=== PATIENT | female | born 1940 | race Caucasian/White ===

== ENCOUNTER → 2018-03-20 08:34 | Outpatient (REF) | payer MEDICARE, OTHER, SELFPAY ==
[2018-03-20 20:19] LABS: Anion Gap 5.5 mmol/L (3-11); BUN 17 mg/dL (7-18); CO2 30.5 mmol/L (21.0-32.0); CREATININE 1.04 mg/dL (0.55-1.02); Calcium 9.1 mg/dL (8.5-10.1); Chloride 104 mmol/L (98-107); Estimated GFR 51.25 (mL/min/1.73m2); Glucose 140 mg/dL (70-100); Potassium 4.1 mmol/L (3.5-5.1); Sodium 140 mmol/L (136-145)
== END ==
LOC: NCHCN 08:34
PROVIDERS: PCP Nurse Practitioner Family; Visit Provider Physician Assistant Medical
DX: I10 Essential (primary) hypertension (principal)
CPT/HCPCS: 80048

== ENCOUNTER 2018-04-15 00:43 | Outpatient (CLI) | payer MEDICARE, OTHER, SELFPAY ==
--- NOTE | 2018-04-15 16:05 | DI.MAMMO_ITS ---
SYMPTOM/DIAGNOSIS: SCREENING, PREVENTIVE HEALTH Z00.00 MAMMOGRAMS: Mammograms were interpreted according to the usual protocol including computer analysis with CAD system, tomosynthesis and C view imaging. Comparison with prior examinations. Breast density B, no suspicious masses or microcalcifications are seen. There has been no significant change when compared to the prior examinations. The skin and axilla are unremarkable. There is nothing to suggest malignancy. IMPRESSION: No evidence for malignancy. Yearly mammography is recommended. Category 1, B. MQSA ASSESSMENT OF FINDINGS: Negative. Category 1. Patient will receive a letter notifying them of these results. BI-RADS category B. There are scattered areas of fibroglandular density.
== END 2018-04-15 01:03 ==
PROVIDERS: Visit Provider Physician Assistant Medical
DX: Z12.31 Encounter for screening mammogram for malignant neoplasm of breast (principal)
CPT/HCPCS: 77063; 77067

== ENCOUNTER 2018-11-27 09:47 | Outpatient (REF) | payer MEDICARE, OTHER, SELFPAY ==
[2018-11-27 20:37] LABS: Anion Gap 6.5 mmol/L (3-11); BUN 14 mg/dL (7-18); CO2 31.5 mmol/L (21.0-32.0); CREATININE 0.92 mg/dL (0.55-1.02); Calcium 9.8 mg/dL (8.5-10.1); Chloride 101 mmol/L (98-107); Estimated GFR 59.04 (mL/min/1.73m2); Glucose 187 mg/dL (70-100); Potassium 3.5 mmol/L (3.5-5.1); Sodium 139 mmol/L (136-145); TSH 1.57 uIU/mL (0.358-3.74)
== END 2018-11-27 10:07 ==
LOC: NCHCN 09:47
PROVIDERS: Visit Provider Nurse Practitioner Family
DX: E11.9 Type 2 diabetes mellitus without complications (principal); E78.5 Hyperlipidemia, unspecified; I10 Essential (primary) hypertension; R06.00 Dyspnea, unspecified; C43.60 Malignant melanoma of unspecified upper limb, including shoulder; K22.2 Esophageal obstruction
CPT/HCPCS: 80048; 84443

== ENCOUNTER 2019-12-23 13:13 | Outpatient (REF) | payer MEDICARE, OTHER, SELFPAY ==
[2019-12-23 19:21] LABS: Anion Gap 2.5 mmol/L (3-11); BUN 17 mg/dL (7-18); CO2 33.5 mmol/L (21.0-32.0); CREATININE 1.01 mg/dL (0.55-1.02); Calcium 10.1 mg/dL (8.5-10.1); Chloride 99 mmol/L (98-107); Estimated GFR 52.87 (mL/min/1.73m2); Glucose 256 mg/dL (74-106); HDL Cholesterol 53 mg/dL (40-60); LDL CHOLESTEROL 141 mg/dL (<100); Sodium 135 mmol/L (136-145)
== END 2019-12-23 13:33 ==
LOC: NCHCN 13:13
PROVIDERS: Visit Provider Nurse Practitioner Family
DX: I10 Essential (primary) hypertension (principal); E78.5 Hyperlipidemia, unspecified
CPT/HCPCS: 80048; 83721; 83718

== ENCOUNTER 2020-01-14 01:45 | Outpatient (CLI) | payer MEDICARE, OTHER, SELFPAY ==
--- NOTE | 2020-01-14 | DI.MAMMO_ITS ---
EXAM: MAMMO SCREENING CLINICAL HISTORY: SCREENING, Z12.39 TECHNIQUE: Mammograms were interpreted according to the usual protocol including computer analysis w [employer] CAD system, tomosynthesis and C-view imaging. COMPARISON: FINDINGS: The breasts are of moderate density somewhat asymmetric distribution of fibroglandular tissue and inc reased radiodensity of the retroareolar portion of the right breast compared to the left. These find ings are unchanged comparison with prior studies including March 2018. No new mass or clumped mi crocalcification is seen in either breast. IMPRESSION: No specific evidence of malignancy at this time. Routine screening examinations are suggested yearly intervals in this age group according to the ACS ACR guidelines. BI-RADS Category 1 - Negative Breast Density - Category B - Scattered areas of fibroglandular density
== END 2020-01-14 02:05 ==
PROVIDERS: PCP Nurse Practitioner Family; Visit Provider Nurse Practitioner Family
DX: Z12.31 Encounter for screening mammogram for malignant neoplasm of breast (principal)
CPT/HCPCS: 77063; 77067

== ENCOUNTER 2020-03-01 20:32 | Outpatient (REF) | payer MEDICARE, OTHER, SELFPAY ==
[2020-03-01 19:24] LABS: HCT 42.7 % (36.0-46.0); HGB 14.2 g/dL (11.2-15.7); MCH 31.8 pg (27.0-33.0); MCHC 33.3 % (32.0-36.0); MCV 95.7 fL (80-95); MPV 11.5 fL (8.0-11.0); Platelet Count 240 10^3/uL (130-400); RBC 4.46 10^6/uL (3.93-5.22); RDW 12.3 % (11.7-14.6); RDW-SD 43.8 fL; WBC 9.56 10^3/uL (4.4-10.8)
[2020-03-01 20:06] LABS: Vitamin D 25 Total 42.4 ng/ml (30-100)
[2020-03-01 20:09] LABS: ALT 32 U/L (14-59); AST 18 U/L (15-37); Albumin 3.6 g/dL (3.4-5.0); Alkaline Phosphatase 95 U/L (46-116); Anion Gap 10.5 mmol/L (3-11); BUN 25 mg/dL (7-18); Bilirubin, Total 0.3 mg/dL (0.2-1.0); CO2 27.5 mmol/L (21.0-32.0); CREATININE 1.09 mg/dL (0.55-1.02); Chloride 100 mmol/L (98-107); Glucose 203 mg/dL (74-106); Potassium 3.2 mmol/L (3.5-5.1); Sodium 138 mmol/L (136-145); TSH 1.05 uIU/mL (0.36-3.74); Total Protein 7.2 g/dL (6.4-8.2); Vitamin B12 323 pg/mL (193-986)
== END 2020-03-01 20:52 ==
LOC: NCHCN 20:32
PROVIDERS: PCP Nurse Practitioner Family; Visit Provider Nurse Practitioner Family
DX: E11.9 Type 2 diabetes mellitus without complications (principal); I10 Essential (primary) hypertension; E66.8 Other obesity; R53.83 Other fatigue; N18.3 Chronic kidney disease, stage 3 (moderate)
CPT/HCPCS: 80053; 82306; 85027; 82607; 84443

== ENCOUNTER 2020-03-22 13:29 | Outpatient (REF) | payer MEDICARE, OTHER, SELFPAY ==
[2020-03-22 20:17] LABS: Anion Gap 9.6 mmol/L (3-11); BUN 23 mg/dL (7-18); CO2 28.4 mmol/L (21.0-32.0); CREATININE 1.04 mg/dL (0.55-1.02); Calcium 9.8 mg/dL (8.5-10.1); Chloride 101 mmol/L (98-107); Estimated GFR 50.99 (mL/min/1.73m2); Glucose 233 mg/dL (74-106); Potassium 3.8 mmol/L (3.5-5.1); Sodium 139 mmol/L (136-145)
== END 2020-03-22 13:49 ==
LOC: NCHCN 13:29
PROVIDERS: PCP Nurse Practitioner Family; Visit Provider Nurse Practitioner Family
DX: I10 Essential (primary) hypertension (principal)
CPT/HCPCS: 80048

== ENCOUNTER 2020-09-14 22:20 | Outpatient (REF) | payer MEDICARE, OTHER, SELFPAY ==
[2020-09-14 15:42] LABS: Anion Gap 10.9 mmol/L (3-11); BUN 23 mg/dL (7-18); CO2 28.1 mmol/L (21.0-32.0); CREATININE 0.9 mg/dL (0.55-1.02); Calcium 9.8 mg/dL (8.5-10.1); Chloride 102 mmol/L (98-107); Glucose 154 mg/dL (74-106); HDL Cholesterol 57 mg/dL (40-60); LDL CHOLESTEROL 140 mg/dL (<100); Potassium 3.5 mmol/L (3.5-5.1); Sodium 141 mmol/L (136-145)
== END 2020-09-14 22:21 | disposition home or self-care (01) ==
LOC: NCHCN 22:20
PROVIDERS: PCP Nurse Practitioner Family; Visit Provider Nurse Practitioner Family
DX: E11.9 Type 2 diabetes mellitus without complications (principal); E78.5 Hyperlipidemia, unspecified; R53.83 Other fatigue; N18.30 Chronic kidney disease, stage 3 unspecified; I10 Essential (primary) hypertension; R20.2 Paresthesia of skin
CPT/HCPCS: 80048; 83721; 83718

== ENCOUNTER 2020-11-01 11:34 | Outpatient (REF) | payer MEDICARE, OTHER, SELFPAY ==
[2020-11-01 16:49] LABS: ALT 35 U/L (14-59); AST 20 U/L (15-37); HDL Cholesterol 60 mg/dL (40-60); LDL CHOLESTEROL 139 mg/dL (<100)
[2020-11-01 17:20] LABS: Creatine Kinase 33 U/L (26-192)
== END 2020-11-01 11:35 | disposition home or self-care (01) ==
LOC: NCHCN 11:34
PROVIDERS: PCP Nurse Practitioner Family; Visit Provider Nurse Practitioner Family
DX: I25.10 Atherosclerotic heart disease of native coronary artery without angina pectoris (principal); E11.9 Type 2 diabetes mellitus without complications
CPT/HCPCS: 82550; 83721; 83036; 83718; 84450; 84460

== ENCOUNTER 2021-01-17 01:53 | Outpatient (CLI) | payer MEDICARE, OTHER, SELFPAY ==
--- NOTE | 2021-01-17 | DI.MAMMO_ITS ---
Exam(s) MAMMO SCREENING EXAM: MAMMO SCREENING CLINICAL HISTORY: SCREENING MAMMOGRAM Z12.31. TECHNIQUE: Bilateral full field digital CC and MLO mammographic images were obtained with 3D tomosyn thesis and utilizing computer aided detection (CAD). COMPARISON: Prior mammograms dating back to 2010, the most recent being December 2019. FINDINGS: There are no new spiculated masses nor malignant appearing microcalcification groups. Microcalcification group in the mid left breast is slightly increased but remains benign appearance. Stable calcifications in the opposite-right breast are again noted. There is no significant architectural distortion nor skin thickening-retraction. IMPRESSION: Benign findings. No radiographic evidence of malignancy. BI-RADS Category 2 - Benign Findings Breast Density - Category B - Scattered areas of fibroglandular density Breast density Category C or D implies that the patient has dense breast tissue. Dense breast tissue can make it harder to find cancer on a mammogram. Dense breast tissue is also associated with an incr eased risk of breast cancer. This information about the result of the mammogram report was provided to the patient to raise their awareness. Use this report when you speak with the patient about their risks for breast cancer, which includes their family history. At that time, you may recommend additional screening tests (Ultrasoun d or MRI) as these tests may add significant information. A negative radiographic report should not delay biopsy if a dominant or clinically suspicious mass is present. Up to ten percent of cancers are not identified on mammography. A negative report may reinforce clinical impression. Adenosis and dense breasts may obscure an underlying neoplasm. False positive reports average 6 to 10%. Patient will receive a letter notifying them of these results.
== END 2021-01-17 02:13 ==
PROVIDERS: PCP Nurse Practitioner Family; Visit Provider Nurse Practitioner Family
DX: Z12.31 Encounter for screening mammogram for malignant neoplasm of breast (principal); R92.8 Other abnormal and inconclusive findings on diagnostic imaging of breast
CPT/HCPCS: 77063; 77067

== ENCOUNTER 2021-02-03 02:12 | Outpatient (CLI) | payer MEDICARE, OTHER, SELFPAY ==
--- NOTE | 2021-02-03 | DI.US_ITS ---
Exam(s) US CAROTID EXAM: US CAROTID CLINICAL HISTORY: DISEQUILIBRIUM, R42,ATHERSCLEROTIC CARDIOVASCULAR DISEASE,I25.10,DIZZINESS,. TECHNIQUE: Ultrasound carotids performed using grayscale, color-flow, and spectral Doppler imaging. COMPARISON: US CAROTID ULTRASOUND from 12/10/2015 FINDINGS: RIGHT CAROTID ARTERY: Plaque: There is mild plaque at the carotid bifurcation and proximal right internal carotid artery. Velocity elevation: Mildly elevated systolic velocity noted in the proximal right ICA. Maximum systo lic velocity is 137 cm/sec; moderate stenosis (50-69 percent) LEFT CAROTID ARTERY: Plaque: Mild plaque also evident at the carotid bulb and proximal left ICA Velocity elevation: Mildly elevated systolic velocity in the mid ICA with maximum systolic velocity o f 137 cm/sec; consistent with moderate stenosis (50-69 percent) VERTEBRAL ARTERIES: Antegrade flow was demonstrated in both vertebral arteries. Measurements: R Bulb: 92.5cm/s PS / 13.5cm/s ED R CCA: 75.8cm/s PS / 15.4cm/s ED R ECA: 114.4cm/s PS / 7.7cm/s ED R ICA Prox: 137cm/s PS /31.5cm/s ED R ICA Mid: 90.7cm/s PS / 15.7cm/s ED R ICA Distal: 99cm/s PS /22.2cm/s ED R Vert: 52.7cm/s PS / 7.7cm/s ED R SVR: 1.81 R DVR: 2.05 L Bulb: 88.7cm/s PS /15.4cm/s ED L CCA: 96.4cm/s PS / 24.4cm/s ED L ECA: 153.5cm/s PS /13.7cm/s ED L ICA Prox:113.6cm/s PS / 29.4cm/s ED L ICA Mid: 136.7cm/sPS / 33.7cm/s ED L ICA Distal: 114.6cm/s PS / 41cm/s ED L Vert: 55cm/s PS / 13.9cm/s ED L SVR: 1.42 L DVR: 1.38 IMPRESSION: There is mild plaque evident in the carotid bulbs and proximal internal carotid arteries bilaterally mildly elevated velocities in the internal carotid arteries in the neck consistent with approximately 50-69 percent stenosis bilaterally. Antegrade flow is demonstrated in both vertebral arteries. Criteria for Carotid Stenosis: Normal: ICA PSV <125 cm/s no plaque or intimal thickening is visible. <50% stenosis: ICA PSV <125 cm/s and plaque or intimal thickening is visible. 50-69% stenosis: ICA PSV is 125-250 cm/s and plaque is visible. >70% stenosis to near occlusion: ICA PSV >250 cm/s with visible plaque and luminal narrowing. DATA REPOSITORY:
== END 2021-02-03 02:32 ==
PROVIDERS: PCP Nurse Practitioner Family; Visit Provider Nurse Practitioner Family
DX: I65.23 Occlusion and stenosis of bilateral carotid arteries (principal); I77.89 Other specified disorders of arteries and arterioles; I25.10 Atherosclerotic heart disease of native coronary artery without angina pectoris
CPT/HCPCS: 93880

== ENCOUNTER 2021-02-08 01:46 | Outpatient (CLI) | payer MEDICARE, OTHER, SELFPAY ==
--- NOTE | 2021-02-08 | DI.US_ITS ---
Exam(s) US BREAST LT COMPLETE EXAM: US BREAST LT COMPLETE CLINICAL HISTORY: F/U MAMMO, DENSE BREAST TISSUE,INCREASED RISK OF BREAST CA,SLIGHT INCREASE TECHNIQUE: Ultrasound left breast performed using standard protocol. COMPARISON: MG MAMMO SCREENING from 01/17/2021 FINDINGS: No solid or cystic masses, hypoechoic foci, areas of abnormal shadowing, or areas of skin thickening. IMPRESSION: No sonographically suspicious finding. BI-RADS Category 2 - Benign Findings Yearly screening mammography is recommended. DATA REPOSITORY:
== END 2021-02-08 02:06 ==
PROVIDERS: PCP Nurse Practitioner Family; Visit Provider Nurse Practitioner Family
DX: R92.2 Inconclusive mammogram (principal); R92.8 Other abnormal and inconclusive findings on diagnostic imaging of breast; R92.0 Mammographic microcalcification found on diagnostic imaging of breast
CPT/HCPCS: 76642

== ENCOUNTER 2021-12-27 19:32 | Outpatient (REF) | payer MEDICARE, OTHER, SELFPAY ==
[2021-12-27 15:04] LABS: HCT 41.2 % (36.0-46.0); HGB 13.4 g/dL (11.2-15.7); MCH 31.5 pg (27.0-33.0); MCHC 32.5 % (32.0-36.0); MCV 97 fL (80-95); MPV 10.7 fL (8.0-11.0); Platelet Count 208 10^3/uL (130-400); RBC 4.26 10^6/uL (3.93-5.22); RDW 12.6 % (11.7-14.6); RDW-SD 44.4 fL; WBC 6.27 10^3/uL (4.4-10.8)
[2021-12-27 15:45] LABS: Hemoglobin A1C 6.9 % (<5.7)
[2021-12-27 16:03] LABS: Calculated LDL 158 mg/dL (<100); Cholesterol 250 mg/dL (<200); HDL Cholesterol 64 mg/dL (40-60); Magnesium 1.6 mg/dL (1.8-2.4); TSH (W/Ref FT4) 1.27 uIU/mL (0.36-3.74); Triglyceride 142 mg/dL (<150)
[2021-12-28 12:42] LABS: BUN 20 mg/dL (7-18); CREATININE 1.1 mg/dL (0.55-1.02); Estimated GFR 47.67 (mL/min/1.73m2)
== END 2021-12-27 19:33 | disposition home or self-care (01) ==
LOC: NCHCN 19:32
PROVIDERS: PCP Nurse Practitioner Family; Visit Provider Nurse Practitioner Family
DX: I10 Essential (primary) hypertension (principal); E78.5 Hyperlipidemia, unspecified; E11.9 Type 2 diabetes mellitus without complications
CPT/HCPCS: 80061; 84520; 85027; 82565; 83036; 83735; 84443

== ENCOUNTER 2022-01-12 03:40 | Outpatient (CLI) | payer MEDICARE, OTHER, SELFPAY ==
--- NOTE | 2022-04-27 13:56 | W.CARDEVENT ---
Date of service: 04/27/22 Time of Service: 13:57 Cardiac Event Recorder Referring Provider:: Sosa Ramos Indications:: Palpitations Cardiac Event Note: This is a 30-day event monitor ordered for palpitations Predominant rhythm was sinus with an average heart rate of 68. Minimum was 46, maximum 88 There were rare ventricular ectopic beats. There was one 8 beat run of nonsustained ventricular tachycardia There were occasional atrial premature beats. Several 3-5 beat atrial runs occurred There was no atrial fibrillation There was no high-grade AV block, no pauses greater than 3 seconds patient symptoms were reported which corresponded to sinus rhythm and sinus tachycardia
== END 2022-01-12 03:41 | disposition home or self-care (01) ==
LOC: RT 03:44
PROVIDERS: PCP Nurse Practitioner Family; Visit Provider Nurse Practitioner Family
DX: R00.1 Bradycardia, unspecified (principal)
CPT/HCPCS: 93270

== ENCOUNTER → 2022-02-01 01:16 | Outpatient (CLI) | payer MEDICARE, OTHER, SELFPAY ==
--- NOTE | 2022-02-01 13:15 | DI.MAMMO_ITS ---
Exam(s) MAMMO SCREENING EXAM: MAMMO SCREENING CLINICAL HISTORY: SCREENING FOR BREAST CANCER, Z12.39. TECHNIQUE: Bilateral full field digital CC and MLO mammographic images were obtained with 3D tomosyn thesis and utilizing computer aided detection (CAD). COMPARISON: Prior mammograms were reviewed, the most recent being December 2020.. Left breast ultrasound January 2021 also reviewed. FINDINGS: There has been no significant change in the appearance and distribution of the fibroglandular tissue. There are no new spiculated masses nor malignant appearing microcalcification groups. There is no significant architectural distortion nor skin thickening-retraction. IMPRESSION: No radiographic evidence of malignancy. BI-RADS Category 1 - Negative Breast Density - Category B - Scattered areas of fibroglandular density Breast density Category C or D implies that the patient has dense breast tissue. Dense breast tissue can make it harder to find cancer on a mammogram. Dense breast tissue is also associated with an incr eased risk of breast cancer. This information about the result of the mammogram report was provided to the patient to raise their awareness. Use this report when you speak with the patient about their risks for breast cancer, which includes their family history. At that time, you may recommend additional screening tests (Ultrasoun d or MRI) as these tests may add significant information. A negative radiographic report should not delay biopsy if a dominant or clinically suspicious mass is present. Up to ten percent of cancers are not identified on mammography. A negative report may reinforce clinical impression. Adenosis and dense breasts may obscure an underlying neoplasm. False positive reports average 6 to 10%. Patient will receive a letter notifying them of these results.
== END ==
PROVIDERS: PCP Nurse Practitioner Family; Visit Provider Nurse Practitioner Family
DX: Z12.31 Encounter for screening mammogram for malignant neoplasm of breast (principal); R92.8 Other abnormal and inconclusive findings on diagnostic imaging of breast
CPT/HCPCS: 77063; 77067

== ENCOUNTER 2022-02-14 11:23 | Outpatient (REF) | payer MEDICARE, OTHER, SELFPAY ==
[2022-02-14 17:00] LABS: Anion Gap 10.4 mmol/L (3-11); BUN 20 mg/dL (7-18); CO2 27.6 mmol/L (21.0-32.0); CREATININE 1.1 mg/dL (0.55-1.02); Calcium 9.9 mg/dL (8.5-10.1); Chloride 101 mmol/L (98-107); Estimated GFR 47.55 (mL/min/1.73m2); Ferritin 227 ng/mL (8-252); Glucose 221 mg/dL (74-106); Potassium 3.6 mmol/L (3.5-5.1); Sodium 139 mmol/L (136-145); Vitamin B12 203 pg/mL (193-986)
[2022-02-14 18:42] LABS: Vitamin D 25 Total 36.9 ng/mL (30-100)
== END 2022-02-14 11:24 | disposition home or self-care (01) ==
LOC: NCHCN 11:23
PROVIDERS: PCP Nurse Practitioner Family; Visit Provider Nurse Practitioner Family
DX: R00.2 Palpitations (principal); R53.83 Other fatigue; E78.5 Hyperlipidemia, unspecified; I25.10 Atherosclerotic heart disease of native coronary artery without angina pectoris; G89.29 Other chronic pain; M79.673 Pain in unspecified foot
CPT/HCPCS: 80048; 82306; 82607; 82728

== ENCOUNTER 2022-04-27 13:58 | Outpatient (CLI) | payer MEDICARE, OTHER, SELFPAY | END 2022-04-27 13:59 | LOC: CARDOPNVT 05-08 09:53 | PROVIDERS: PCP Nurse Practitioner Family; Visit Provider Internal Medicine Cardiovascular Disease | DX: I49.49 Other premature depolarization (principal); I49.1 Atrial premature depolarization | CPT/HCPCS: 93272 ==

== ENCOUNTER 2023-02-08 15:04 | Outpatient (REF) | payer MEDICARE, OTHER, SELFPAY ==
[2023-02-08 16:29] LABS: ALT 33 U/L (14-59); AST 27 U/L (15-37); Albumin 3.5 g/dL (3.4-5.0); Alkaline Phosphatase 122 U/L (46-116); Anion Gap 8.3 mmol/L (3-11); BUN 23 mg/dL (7-18); Bilirubin, Total 0.5 mg/dL (0.2-1.0); CO2 31.7 mmol/L (21.0-32.0); CREATININE 1.2 mg/dL (0.55-1.02); Calcium 9.9 mg/dL (8.5-10.1); Chloride 101 mmol/L (98-107); Estimated GFR 45.19 (mL/min/1.73m2); Glucose 229 mg/dL (74-106); HDL Cholesterol 51 mg/dL (40-60); LDL CHOLESTEROL 146 mg/dL (<100); Potassium 3.3 mmol/L (3.5-5.1); Sodium 141 mmol/L (136-145); Total Protein 7.3 g/dL (6.4-8.2)
== END 2023-02-08 15:05 | disposition home or self-care (01) ==
LOC: NCHCN 15:04
PROVIDERS: PCP Nurse Practitioner Family; Visit Provider Nurse Practitioner Family
DX: E78.5 Hyperlipidemia, unspecified (principal); I10 Essential (primary) hypertension; E11.9 Type 2 diabetes mellitus without complications
CPT/HCPCS: 80053; 83721; 83718

== ENCOUNTER 2023-03-29 09:56 | Outpatient (REF) | payer MEDICARE, OTHER, SELFPAY ==
[2023-03-29 15:53] LABS: Anion Gap 7.4 mmol/L (3-11); BUN 19 mg/dL (7-18); CO2 27.6 mmol/L (21.0-32.0); CREATININE 1.1 mg/dL (0.55-1.02); Calcium 9.2 mg/dL (8.5-10.1); Chloride 106 mmol/L (98-107); Estimated GFR 49.86 (mL/min/1.73m2); Glucose 232 mg/dL (74-106); Potassium 3.9 mmol/L (3.5-5.1); Sodium 141 mmol/L (136-145)
== END 2023-03-29 09:57 | disposition home or self-care (01) ==
LOC: NCHCN 09:56
PROVIDERS: PCP Nurse Practitioner Family; Visit Provider Nurse Practitioner Family
DX: I10 Essential (primary) hypertension (principal); N18.30 Chronic kidney disease, stage 3 unspecified
CPT/HCPCS: 80048

== ENCOUNTER → 2023-04-02 01:03 | Outpatient (CLI) | payer MEDICARE, OTHER, SELFPAY ==
--- NOTE | 2023-04-02 | DI.MAMMO_ITS ---
Exam(s) MAMMO SCREENING EXAM: MAMMO SCREENING CLINICAL HISTORY: SCREENING, Z12.31. TECHNIQUE: Bilateral full field digital CC and MLO mammographic images were obtained with 3D tomosyn thesis and utilizing computer aided detection (CAD). COMPARISON: Prior mammograms were reviewed. FINDINGS: There has been no significant change in the appearance and distribution of the fibroglandular tissue. There are no new spiculated masses nor malignant appearing microcalcification groups. There is no significant architectural distortion nor skin thickening-retraction. IMPRESSION: No radiographic evidence of malignancy. BI-RADS Category 1 - Negative Breast Density - Category B - Scattered areas of fibroglandular density Breast density Category C or D implies that the patient has dense breast tissue. Dense breast tissue can make it harder to find cancer on a mammogram. Dense breast tissue is also associated with an incr eased risk of breast cancer. This information about the result of the mammogram report was provided to the patient to raise their awareness. Use this report when you speak with the patient about their risks for breast cancer, which includes their family history. At that time, you may recommend additional screening tests (Ultrasoun d or MRI) as these tests may add significant information. A negative radiographic report should not delay biopsy if a dominant or clinically suspicious mass is present. Up to ten percent of cancers are not identified on mammography. A negative report may reinforce clinical impression. Adenosis and dense breasts may obscure an underlying neoplasm. False positive reports average 6 to 10%. Patient will receive a letter notifying them of these results.
== END ==
PROVIDERS: PCP Nurse Practitioner Family; Visit Provider Nurse Practitioner Family
DX: Z12.31 Encounter for screening mammogram for malignant neoplasm of breast (principal)
CPT/HCPCS: 77063; 77067

== ENCOUNTER 2023-11-08 16:47 | Outpatient (REF) | payer MEDICARE, OTHER, SELFPAY ==
[2023-11-08 18:13] LABS: BUN 22 mg/dL (7-18); Calcium 9.7 mg/dL (8.5-10.1); Chloride 104 mmol/L (98-107); Glucose 155 mg/dL (74-106); Potassium 3.8 mmol/L (3.5-5.1); Sodium 141 mmol/L (136-145)
[2023-11-08 18:36] LABS: Hemoglobin A1C 7.6 % (<5.7)
== END 2023-11-08 16:48 | disposition home or self-care (01) ==
LOC: NCHCN 16:47
PROVIDERS: PCP Nurse Practitioner Family; Visit Provider Nurse Practitioner Family
DX: E11.9 Type 2 diabetes mellitus without complications (principal)
CPT/HCPCS: 80048; 83036

== ENCOUNTER 2023-11-16 06:27 | Day surgery (SDC) | payer MEDICARE, OTHER, SELFPAY ==
--- NOTE | 2023-11-16 06:21 | W.ANESPRE ---
General Info Date of Service Date Performed: 11/16/23 Height: 5 ft 3.25 in Weight: 70.76 kg Body Mass Index (BMI): 27.3 Surgical Procedure: Operation Date: 11/16/23 07:40 Proposed Procedure Side Surgeon p Cataract Extraction with IOL Implant Left Patel Baldwin MD Meds Allergies and Home Medications Allergies Allergy/AdvReac Type Severity Reaction Status Date / Time Penicillins Allergy Skin Rash Unverified 11/16/23 06:55 Sulfa (Sulfonamide Allergy Skin Rash Unverified 11/16/23 06:55 Antibiotics) pravastatin AdvReac Severe Myalgia Verified 11/16/23 07:04 simvastatin [From Zocor] AdvReac dizziness, Unverified 11/16/23 07:04 Myalgia Home Medication Medication Instructions Recorded Aspirin Low-Strength 81 mg 81 mg PO DAILY 03/25/15 chewable tablet (aspirin) Prilosec OTC 20 mg tablet,delayed 20 mg PO DAILY 03/25/15 release (omeprazole magnesium) ProAir HFA 90 mcg/actuation 2 puff inhalation Q6H PRN 03/25/15 aerosol inhaler (albuterol sulfate) hydrochlorothiazide 25 mg tablet 25 mg PO DAILY 03/25/15 brimonidine 0.2 % eye drops 1 drp ophthalmic (eye) BID 11/13/23 clotrimazole 1 % topical cream 1 applic topical DIRECTED 11/13/23 empagliflozin 25 mg tablet 25 mg PO DAILY 11/13/23 (Jardiance) magnesium chloride 64 mg 64 mg PO DAILY 11/13/23 (magnesium chloride) tablet metoprolol succinate 25 mg 25 mg PO DAILY 11/13/23 tablet,extended release 24 hr metoprolol succinate 50 mg 50 mg PO DAILY 11/13/23 tablet,extended release 24 hr potassium chloride 10 mEq 10 meq PO DAILY 11/13/23 capsule,extended release semaglutide 3 mg tablet (Rybelsus) 3 mg PO DAILY 11/13/23 therapeutic multivitamin 1 tab PO DAILY 11/13/23 Current Visit Medications: Current Medications Generic Name Dose Route Start Last Admin Trade Name Freq PRN Reason Stop Dose Admin Acetaminophen 1,000 mg 11/16/23 06:00 Acetaminophen 500 Mg Tab PO 12/16/23 05:59 Q4H PRN PRN Balanced Salt Solution 500 ml 11/16/23 06:00 Balanced Salt Soln.-Plus 500 Ml Bag OP 12/16/23 05:59 DIRECTED HARJIT Miscellaneous Medication 0 ml 11/16/23 06:00 Prednisolone 1%, Moxifloxacin 0.5%, Bromfenac 0.09% 5ml Btl OS 12/16/23 05:59 DIRECTED HARJIT Miscellaneous Medication 0 ml 11/16/23 06:00 Tropicam./Phenyleph. (1/2.5%) 10 Ml Btl OS 12/16/23 05:59 DIRECTED HARJIT Tetracaine HCl 0 ml 11/16/23 06:00 Tetracaine 0.5% 4 Ml Btl OS 12/16/23 05:59 DIRECTED HARJIT PFSH Active Problems Active Problems: Problem Status Onset Code Cortical age-related cataract, left eye H25.012 Nuclear age-related cataract, left eye H25.12 Medical History Medical History Impacted cerumen Pain in right wrist Atherosclerosis of coronary artery without angina pectoris Bimalleolar fracture Snoring Dyspnea Palpitations She had 3 brief episodes while she was vacationing in [place] over the wintertime. She is asymptomatic today. She has had an extensive workup 2021 for the similar symptoms. if the symptoms worsen or increase in frequency will refer back to cardiology-Per H&P Edema Paresthesia Fatigue Dizziness and giddiness Syncope and collapse Pain in toe Epidermoid cyst Seborrheic dermatitis Chronic kidney disease, stage 3 IBS (irritable bowel syndrome) Hx of constipation Gastroenteritis Diaphragmatic hernia Disorder of nasal sinus Mild intermittent asthma Deviated nasal septum Arterial embolus and thrombosis Carotid artery stenosis Stable followed by [facility]. carotid duplex 16-49% stenosis continue ASA and statin no vascular intervention warranted at this time return to clinic 1 year.-Per H&P Bilateral tinnitus Cataract Chronic pain HLD (hyperlipidemia) Type II diabetes mellitus Malignant melanoma of upper limb Onychomycosis Herpes zoster Asthma Hypertension GERD (gastroesophageal reflux disease) History of basal cell carcinoma Surgical History Surgical History Skin Cancer Removal EXE HONEY CYST ON BACK/IV (04/23/15) [facility] EGD - IV Sedation Colonoscopy - MAC Tobacco Smoking/Tobacco Use Status: Never Alcohol Alcohol Intake: never Substance Use Substance use: Never Substance use type: does not use Vital Signs and Lab Results Vital Signs Most Recent Vital Signs in EMR: Temp Pulse Resp BP Pulse Ox 36.1 C L 71 16 136/92 H 98 11/16/23 06:42 11/16/23 06:42 11/16/23 06:42 11/16/23 06:42 11/16/23 06:42 Lab Results Blood Type / Crossmatch: No Data to Display Complete Blood Count: No Data to Display Complete Metabolic Panel: Sodium 141 mmol/L (136-145) 11/08/23 11:50 Potassium 3.8 mmol/L (3.5-5.1) 11/08/23 11:50 Chloride 104 mmol/L (98-107) 11/08/23 11:50 Carbon Dioxide 27.0 mmol/L (21.0-32.0) 11/08/23 11:50 BUN 22 mg/dL (7-18) H 11/08/23 11:50 Creatinine 1.0 mg/dL (0.55-1.02) 11/08/23 11:50 Est GFR (CKD-EPI 2020) 55.90 (mL/min/1.73m2) 11/08/23 11:50 Calcium 9.7 mg/dL (8.5-10.1) 11/08/23 11:50 Glucose 155 mg/dL (74-106) H 11/08/23 11:50 Hemoglobin A1c 7.6 % (<5.7) H 11/08/23 11:50 Liver Function Panel: No Data to Display Coagulation Panel: No Data to Display Cardiac Panel: No Data to Display Arterial Blood Gas: No Data to Display Venous Blood Gas: No Data to Display Pancreas Panel: No Data to Display Thyroid Panel: No Data to Display Infectious Disease: No Data to Display Blood Cultures: No Data to Display Toxicology Panel: No Data to Display Imaging and Studies Imaging and Studies Study information below may be from another EMR and interpreted by another provider. Please see original notes in EMR for more complete details. Carotid Artery Summary:: 02/09: mild plaque carotid bulbs and ICA bilaterally. 50-69% stenosis bilaterally. Anesthesia Assessment and Plan Anesthesia History Personal History: No History of Anesthesia Complications Family History: No Family History of Anesthesia Complications Exercise Tolerance Exercise Tolerance: Metabolic Equivalents>4 Cardiac & Pulmonary Exam Cardiac Exam: Normal S1/S2 Heart Sounds Pulmonary Exam: Clear Bilateral Breath Sounds Implantable Cardiac Device Does patient have a Pacemaker or an ICD?: No Airway Exam Known Difficult Airway: No Mallampati Class: 3 Mouth Opening: Normal (> 3cm) Thyromental Distance: Greater than 3 cm Neck Range of Motion: Full ROM Neck Circumference: Normal Teeth Condition: Normal Dentition ASA Classification ASA Score: ASA 3 Emergency Case?: No NPO Status NPO Status: NPO Clears >2 hours, Solids >8 hours Anesthesia Plan Resuscitation Status: Full Code Anesthesia Technique: MAC Anesthesia Airway Planned: Natural Airway Monitors Used: Standard Monitors Preoperative Comments:: 83 yo female for cataract removal. Sig PMHx: CAD, asthma (rare inhaler use), GERD (well controlled), CKDIII, DMII, never smoker
[2023-11-16 06:42] VITALS: BP 136/92; PULSE 71; RESP 16; TEMP 36.1; O2SAT 98
[2023-11-16 07:00] VITALS: BMI 27.3
[2023-11-16] MEDS: Balanced Salt Soln.-PLUS 500 ML BAG OP (07:38)
[2023-11-16] MEDS: Duovisc Viscoelastic System EACH 1 EACH (07:38)
[2023-11-16] MEDS: Povidone-Iodine Ophth 30 ML BTL (07:38)
[2023-11-16] MEDS: Tetracaine 0.5% 4 ML BTL OS (07:38)
[2023-11-16] MEDS: Lidocaine 1% Pres-Free 5 ML VIAL (07:39)
--- NOTE | 2023-11-16 07:57 | W.PM.DSUDISC ---
Date of service: 11/16/23 Time of Service: 07:57 Discharge Plan Disposition Patient Disposition: Home Discharge Details Attending Provider: Patel Baldwin Primary Care Provider: Sosa Ramos Home Meds and New Rx's Prescriptions: No Action aspirin [Aspirin Low-Strength] 81 MG tablet,chewable 81 mg PO DAILY hydrochlorothiazide 25 MG tablet 25 mg PO DAILY albuterol sulfate [ProAir HFA] 8.5 GM HFA aerosol inhaler 2 puff Inhalation Q6H PRN omeprazole magnesium [Prilosec OTC] 20 MG tablet,delayed release (DR/EC) 20 mg PO DAILY Jardiance 25 mg tablet 25 mg PO DAILY potassium chloride 10 mEq capsule, extended release 10 meq PO DAILY Rybelsus 3 mg tablet 3 mg PO DAILY metoprolol succinate 50 mg tablet extended release 24 hr 50 mg PO DAILY brimonidine 0.2 % drops 1 drp ophthalmic (eye) BID Patient Comments: INSTILL 1 DROP IN BOTH EYES TWICE DAILY NEEDED magnesium chloride 64 mg magnesium tablet 64 mg PO DAILY Patient Comments: Take 1 tablet by mouth once a day clotrimazole 1 % cream 1 applic TOPICAL DIRECTED Patient Comments: APPLY EXTERNALLY TO THE AFFECTED AREA TWICE DAILY therapeutic multivitamin Tablet 1 tab PO DAILY metoprolol succinate 25 mg tablet extended release 24 hr 25 mg PO DAILY Discharge Instructions Stand Alone Forms: [facility] Post-Op Demi Morales ([facility]) Discharge Orders Discharge Orders: Discharge Order (Routine); Ordered 11/16/23 Ordered By: Patel Baldwin DS: Diagnosis Discharge Diagnosis (1) Cortical age-related cataract, left eye: Status: Resolved (2) Nuclear age-related cataract, left eye: Status: Resolved
--- NOTE | 2023-11-16 07:57 | W.PM.OP ---
Date of service: 11/16/23 Time of Service: 07:58 Operative Note Operative Note DATE OF PROCEDURE: 11/16/23 PRE-OP DIAGNOSIS: Nuclear/cortical cataract, left eye POST-OP DIAGNOSIS: same PROCEDURE: Cataract extraction using phacoemulsification with intraocular lens implant, left eye SURGEON: Patel Baldwin ANESTHESIA TYPE: Local By Surgeon and MAC Refer to Anesthesia Record PATHOLOGY: none sent COMPLICATIONS: None Patient was transported to: same day Patient's condition: stable Implants: Praveen Clareon [id number] Indications: Progressive decreased vision due to cataract, left eye Procedure Description: CATARACT SURGERY OPERATIVE REPORT PREOPERATIVE DIAGNOSIS: Nuclear/cortical cataract, left eye POSTOPERATIVE DIAGNOSIS: Same OPERATION: Cataract extraction using phacoemulsification with posterior chamber intraocular lens implant, left eye. IOL: IOL Switchboard Installer/Model: Praveen Clareon [id number] IOL Power: + 23.0 diopters IOL Serial Number: [id number] Optic Diameter: 6.0mm Haptic/Overall Diameter: 13.0mm PHACO INFO: [email or web address] Vision System with OZil and Active Fluidics Cumulative Dispersed Energy (CDE): 6.72 seconds SURGEON: Patel Baldwin MD, MAURICIO ANESTHESIA: Monitored Anesthesia Care (MAC), with local sub-tenon's anesthetic infiltration COMPLICATIONS: None SPECIMENS: None INDICATIONS FOR PROCEDURE: The patient is an 83-year-old lady with history of diminished visual acuity in her left eye secondary to the development of nuclear/cortical cataract. She is significantly symptomatic that she desires cataract surgery and attempt to improve and maximize her vision. See office notes for detailed information. PROCEDURE: The correct surgical eye was identified and marked as the left eye and the pupil was dilated in the preoperative area using mydriatics and cycloplegics. The dilated pupil size was 5.5 mm. The patient elected to proceed without oral sedation. The patient was brought to the operating room where cardiopulmonary monitoring was instituted and surgical time-out was performed, confirming the correct operative eye and IOL power. Topical anesthesia was administered and ophthalmic povidone-iodine 5% was instilled into the conjunctival fornices. The amanda-ocular area was prepped with Betadine 10% solution and draped in the usual sterile fashion for intraocular surgery, including an aperture drape. A Tegaderm transparent film dressing was cut in half and used to cover the lashes and lid margins. Care was taken to sequester the lashes and lid margins under the Tegaderm dressing. A lid speculum was placed between the lids of the operative eye and the Praveen LuxOR Revalia operating microscope was maneuvered into position. Inderjit scissors were then used to make a conjunctival buttonhole approximately 6mm posterior to the limbus in the inferonasal quadrant. Blunt dissection was carried out to expose bare sclera, and a blunt-tipped sub-tenon?s anesthesia cannula was introduced and passed posteriorly along the globe where non-preserved plain lidocaine was injected into posterior sub-Tenon?s space. A sideport knife was used to make a paracentesis port. Intraocular phenylephrine/lidocaine was injected into the anterior chamber. The anterior chamber was then filled with viscoelastic. A keratome knife was used construct a two-plane clear corneal tunnel extending 2.0mm into clear cornea. A flap was raised on the anterior capsule and capsulorhexis forceps were used to complete a continuous curvilinear capsulorhexis of 5.0 mm. Balanced salt solution was then used to perform cortical cleaving hydrodissection and nuclear hydrodelineation until the lens could be freely rotated within the capsular bag. The lens nucleus was then disassembled and removed within the capsular bag and iris plane using phacoemulsification. Residual cortical material was removed using the irrigation/aspiration handpiece. The posterior capsule was carefully polished to remove as much residual lens epithelial cells as safely possible. The capsular bag was then inflated and the anterior chamber deepened with viscoelastic. The lens implant described above was inserted into the capsular bag using the Praveen Autonome Injector. A Kuglen hook was used to dial the IOL into position. Residual viscoelastic was then removed first from posterior to the IOL, then from the anterior chamber using the I/A handpiece. The lens implant was noted to center nicely within the capsular bag. The incisions were stromally hydrated, and the anterior chamber was reformed using BSS. Then 0.5cc of moxifloxacin 1.0mg/ml were injected into the capsular bag and anterior chamber. The incisions were checked with a Weck spear and found to be secure. Several drops of ophthalmic povidone-iodine 5% were then applied to the eye followed by two drops of combination steroid/NSAID/antibiotic solution. The drapes were removed and a clear plastic protective eye shield was placed over the eye. The patient was then returned to [facility] in stable condition.
[2023-11-16 07:58] VITALS: BP 113/68; PULSE 68; RESP 18; TEMP 36.4; O2SAT 100
--- NOTE | 2023-11-16 08:19 | W.ANESPOSTOP ---
Postoperative Evaluation Date, Time and Location Date Performed: 11/16/23 Time Performed: 08:11 Patient Location: Day Surgery Unit Vital Signs Most Recent Imported Vital Signs: Most Recent Vital Signs Temp Pulse Resp BP Pulse Ox 36.4 C L 68 18 113/68 100 11/16/23 07:58 11/16/23 07:58 11/16/23 07:58 11/16/23 07:58 11/16/23 07:58 Pain Score Most Recent Pain Score: Most Recent Pain Score Pain Level 0 11/16/23 07:58 Assessment Mental Status: Awake (Alert & Oriented to Patient Baseline) Airway and Respiratory Function: Patent airway with normal (patient baseline) respiratory exam Cardiovascular Function: Hemodynamically Stable Hydration Status: Adequately Hydrated Nausea & Vomiting: No Nausea or Vomiting Pain: Pt. Denies Any Pain Peripheral Nerve Block: Patient did not receive a nerve block
== END 2023-11-16 08:20 | disposition home or self-care (01) ==
LOC: SUR 06:27
PROVIDERS: PCP Nurse Practitioner Family; Visit Provider Ophthalmology
PROC: (CPT 66984; principal; 2023-11-16 07:30)
DX: H25.012 Cortical age-related cataract, left eye (principal); H25.12 Age-related nuclear cataract, left eye; I25.10 Atherosclerotic heart disease of native coronary artery without angina pectoris; J45.909 Unspecified asthma, uncomplicated; K21.9 Gastro-esophageal reflux disease without esophagitis; E11.9 Type 2 diabetes mellitus without complications; N18.30 Chronic kidney disease, stage 3 unspecified
CPT/HCPCS: 66984; 00123; V2632; J2003

== ENCOUNTER 2023-11-30 09:42 | Day surgery (SDC) | payer MEDICARE, OTHER, SELFPAY ==
--- NOTE | 2023-11-30 06:58 | ANES.PREOP_ITS ---
General Info Date of Service Date Performed: 11/30/23 Height: 5 ft 3.25 in Weight: 69.6 kg Body Mass Index (BMI): 26.9 Surgical Procedure: Operation Date: 11/30/23 12:40 Proposed Procedure Side Surgeon p Cataract Extraction with IOL Implant Right Patel Baldwin MD Meds Allergies and Home Medications Allergies Allergy/AdvReac Type Severity Reaction Status Date / Time Penicillins Allergy Skin Rash Verified 11/27/23 15:25 Sulfa (Sulfonamide Allergy Skin Rash Verified 11/27/23 15:25 Antibiotics) pravastatin AdvReac Severe Myalgia Verified 11/27/23 15:25 simvastatin [From Zocor] AdvReac dizziness, Verified 11/27/23 15:25 Myalgia Home Medication Medication Instructions Recorded Aspirin Low-Strength 81 mg 81 mg PO DAILY 03/25/15 chewable tablet (aspirin) Prilosec OTC 20 mg tablet,delayed 20 mg PO DAILY 03/25/15 release (omeprazole magnesium) ProAir HFA 90 mcg/actuation 2 puff inhalation Q6H PRN 03/25/15 aerosol inhaler (albuterol sulfate) hydrochlorothiazide 25 mg tablet 25 mg PO DAILY 03/25/15 brimonidine 0.2 % eye drops 1 drp ophthalmic (eye) BID 11/13/23 clotrimazole 1 % topical cream 1 applic topical DIRECTED 11/13/23 empagliflozin 25 mg tablet 25 mg PO DAILY 11/13/23 (Jardiance) magnesium chloride 64 mg 64 mg PO DAILY 11/13/23 (magnesium chloride) tablet metoprolol succinate 25 mg 25 mg PO DAILY 11/13/23 tablet,extended release 24 hr metoprolol succinate 50 mg 50 mg PO DAILY 11/13/23 tablet,extended release 24 hr potassium chloride 10 mEq 10 meq PO DAILY 11/13/23 capsule,extended release semaglutide 3 mg tablet (Rybelsus) 3 mg PO DAILY 11/13/23 therapeutic multivitamin 1 tab PO DAILY 11/13/23 Current Visit Medications: Current Medications Generic Name Dose Route Start Last Admin Trade Name Freq PRN Reason Stop Dose Admin Acetaminophen 1,000 mg 11/30/23 06:00 Acetaminophen 500 Mg Tab PO 12/30/23 05:59 Q4H PRN PRN Balanced Salt Solution 500 ml 11/30/23 06:00 Balanced Salt Soln.-Plus 500 Ml Bag OP 12/30/23 05:59 DIRECTED HARJIT Miscellaneous Medication 0 ml 11/30/23 06:00 Prednisolone 1%, Moxifloxacin 0.5%, Bromfenac 0.09% 5ml Btl OD 12/30/23 05:59 DIRECTED HARJIT Miscellaneous Medication 0 ml 11/30/23 06:00 Tropicam./Phenyleph. (1/2.5%) 10 Ml Btl OD 12/30/23 05:59 DIRECTED HARJIT Tetracaine HCl 0 ml 11/30/23 06:00 Tetracaine 0.5% 4 Ml Btl OD 12/30/23 05:59 DIRECTED HARJIT PFSH Active Problems Active Problems: Problem Status Onset Code Cortical age-related cataract, right eye H25.011 Nuclear age-related cataract, right eye H25.11 Cortical age-related cataract, left eye H25.012 Nuclear age-related cataract, left eye H25.12 Medical History Medical History (Updated 11/28/23 @ 20:14 by Patel Baldwin MD) Impacted cerumen Pain in right wrist Atherosclerosis of coronary artery without angina pectoris Bimalleolar fracture Snoring Dyspnea Palpitations She had 3 brief episodes while she was vacationing in [place] over the wintertime. She is asymptomatic today. She has had an extensive workup 2021 for the similar symptoms. if the symptoms worsen or increase in frequency will refer back to cardiology-Per H&P Edema Paresthesia Fatigue Dizziness and giddiness Syncope and collapse Pain in toe Epidermoid cyst Seborrheic dermatitis Chronic kidney disease, stage 3 IBS (irritable bowel syndrome) Hx of constipation Gastroenteritis Diaphragmatic hernia Disorder of nasal sinus Mild intermittent asthma Deviated nasal septum Arterial embolus and thrombosis Carotid artery stenosis Stable followed by [facility] [place]. carotid duplex 16-49% stenosis continue ASA and statin no vascular intervention warranted at this time return to clinic 1 year.-Per H&P Bilateral tinnitus Cataract Chronic pain HLD (hyperlipidemia) Type II diabetes mellitus Malignant melanoma of upper limb Onychomycosis Herpes zoster Asthma Hypertension GERD (gastroesophageal reflux disease) History of basal cell carcinoma Surgical History Surgical History (Updated 11/30/23 @ 10:11 by Gayatri Mercado) History of ankle surgery right - hardware Skin Cancer Removal EXE HONEY CYST ON BACK/IV (04/23/15) [facility]RAVEN EGD - IV Sedation Colonoscopy - MAC Tobacco Smoking/Tobacco Use Status: Never Alcohol Alcohol Intake: never Substance Use Substance use: Never Substance use type: does not use Vital Signs and Lab Results Vital Signs Most Recent Vital Signs in EMR: Temp Pulse Resp BP Pulse Ox 36.2 C L 65 16 166/73 H 98 11/30/23 09:51 11/30/23 09:51 11/30/23 09:51 11/30/23 09:51 11/30/23 09:51 Lab Results Blood Type / Crossmatch: No Data to Display Complete Blood Count: No Data to Display Complete Metabolic Panel: Sodium 141 mmol/L (136-145) 11/08/23 11:50 Potassium 3.8 mmol/L (3.5-5.1) 11/08/23 11:50 Chloride 104 mmol/L (98-107) 11/08/23 11:50 Carbon Dioxide 27.0 mmol/L (21.0-32.0) 11/08/23 11:50 BUN 22 mg/dL (7-18) H 11/08/23 11:50 Creatinine 1.0 mg/dL (0.55-1.02) 11/08/23 11:50 Est GFR (CKD-EPI 2020) 55.90 (mL/min/1.73m2) 11/08/23 11:50 Calcium 9.7 mg/dL (8.5-10.1) 11/08/23 11:50 Glucose 155 mg/dL (74-106) H 11/08/23 11:50 Hemoglobin A1c 7.6 % (<5.7) H 11/08/23 11:50 Liver Function Panel: No Data to Display Coagulation Panel: No Data to Display Cardiac Panel: No Data to Display Arterial Blood Gas: No Data to Display Venous Blood Gas: No Data to Display Pancreas Panel: No Data to Display Thyroid Panel: No Data to Display Infectious Disease: No Data to Display Blood Cultures: No Data to Display Toxicology Panel: No Data to Display Imaging and Studies Imaging and Studies Study information below may be from another EMR and interpreted by another provider. Please see original notes in EMR for more complete details. Carotid Artery Summary:: 02/09: mild plaque carotid bulbs and ICA bilaterally. 50-69% stenosis bilaterally. Anesthesia Assessment and Plan Anesthesia History Personal History: No History of Anesthesia Complications Family History: No Family History of Anesthesia Complications Exercise Tolerance Exercise Tolerance: Metabolic Equivalents>4 Cardiac & Pulmonary Exam Cardiac Exam: Normal S1/S2 Heart Sounds Pulmonary Exam: Clear Bilateral Breath Sounds Implantable Cardiac Device Does patient have a Pacemaker or an ICD?: No Airway Exam Known Difficult Airway: No Mallampati Class: 3 Mouth Opening: Normal (> 3cm) Thyromental Distance: Greater than 3 cm Neck Range of Motion: Full ROM Neck Circumference: Normal Teeth Condition: Normal Dentition ASA Classification ASA Score: ASA 3 Emergency Case?: No NPO Status NPO Status: NPO Clears >2 hours, Solids >8 hours Anesthesia Plan Resuscitation Status: Full Code Anesthesia Technique: MAC Anesthesia Airway Planned: Natural Airway Monitors Used: Standard Monitors Preoperative Comments:: 83 yo female for cataract removal. no MKO for previous . no changes in health history. Sig PMHx: CAD, asthma (rare inhaler use), GERD (well controlled), CKDIII, DMII, never smoker
[2023-11-30 09:50] VITALS: BMI 26.9
[2023-11-30 09:51] VITALS: BP 166/73; PULSE 65; RESP 16; TEMP 36.2; O2SAT 98
[2023-11-30] MEDS: Tetracaine 0.5% 4 ML BTL OD (11:05)
[2023-11-30] MEDS: Povidone-Iodine Ophth 30 ML BTL (11:05)
[2023-11-30] MEDS: Balanced Salt Soln.-PLUS 500 ML BAG OP (11:14)
[2023-11-30] MEDS: Duovisc Viscoelastic System EACH 1 EACH (11:14)
[2023-11-30] MEDS: Lidocaine 1% Pres-Free 5 ML VIAL (11:15)
[2023-11-30 11:30] VITALS: BP 146/73; PULSE 65; RESP 18; TEMP 36.1; O2SAT 100
--- NOTE | 2023-11-30 11:30 | W.PM.DSUDISC ---
Date of service: 11/30/23 Time of Service: 11:30 Discharge Plan Disposition Patient Disposition: Home Discharge Details Attending Provider: Patel Baldwin Primary Care Provider: Sosa Ramos Home Meds and New Rx's Prescriptions: No Action aspirin [Aspirin Low-Strength] 81 MG tablet,chewable 81 mg PO DAILY hydrochlorothiazide 25 MG tablet 25 mg PO DAILY albuterol sulfate [ProAir HFA] 8.5 GM HFA aerosol inhaler 2 puff Inhalation Q6H PRN omeprazole magnesium [Prilosec OTC] 20 MG tablet,delayed release (DR/EC) 20 mg PO DAILY Jardiance 25 mg tablet 25 mg PO DAILY potassium chloride 10 mEq capsule, extended release 10 meq PO DAILY Rybelsus 3 mg tablet 3 mg PO DAILY metoprolol succinate 50 mg tablet extended release 24 hr 50 mg PO DAILY brimonidine 0.2 % drops 1 drp ophthalmic (eye) BID Patient Comments: INSTILL 1 DROP IN BOTH EYES TWICE DAILY NEEDED magnesium chloride 64 mg magnesium tablet 64 mg PO DAILY Patient Comments: Take 1 tablet by mouth once a day clotrimazole 1 % cream 1 applic TOPICAL DIRECTED Patient Comments: APPLY EXTERNALLY TO THE AFFECTED AREA TWICE DAILY therapeutic multivitamin Tablet 1 tab PO DAILY metoprolol succinate 25 mg tablet extended release 24 hr 25 mg PO DAILY Discharge Instructions Stand Alone Forms: [facility] Post-Op Demi Morales ([facility]) Discharge Orders Discharge Orders: Discharge Order (Routine); Ordered 11/30/23 Ordered By: Patel Baldwin DS: Diagnosis Discharge Diagnosis (1) Cortical age-related cataract, right eye: Status: Resolved (2) Nuclear age-related cataract, right eye: Status: Resolved
--- NOTE | 2023-11-30 11:31 | ROE_ITS ---
Date of service: 11/30/23 Time of Service: 11:31 Operative Note Operative Note DATE OF PROCEDURE: 11/30/23 PRE-OP DIAGNOSIS: Nuclear/cortical cataract, right eye POST-OP DIAGNOSIS: same PROCEDURE: Cataract extraction using phacoemulsification with intraocular lens implant, right eye SURGEON: Patel Baldwin ANESTHESIA TYPE: Local By Surgeon and MAC Refer to Anesthesia Record ESTIMATED BLOOD LOSS: 0 PATHOLOGY: none sent COMPLICATIONS: None Patient was transported to: same day Patient's condition: stable Implants: Praveen Clareon [id number] Indications: Progressive decreased vision due to cataract, right eye Procedure Description: CATARACT SURGERY OPERATIVE REPORT PREOPERATIVE DIAGNOSIS: Nuclear/cortical cataract, right eye POSTOPERATIVE DIAGNOSIS: Same OPERATION: Cataract extraction using phacoemulsification with posterior chamber intraocular lens implant, right eye. IOL: IOL Client Solutions Director/Model: Praveen Clareon [id number] IOL Power: + 24.0 diopters IOL Serial Number: [id number] Optic Diameter: 6.0mm Haptic/Overall Diameter: 13.0mm PHACO INFO: [email or web address] Vision System with OZil and Active Fluidics Cumulative Dispersed Energy (CDE): 5.5 to seconds SURGEON: Patel Baldwin MD, MAURICIO ANESTHESIA: Monitored Anesthesia Care (MAC), with local sub-tenon's anesthetic infiltration COMPLICATIONS: None SPECIMENS: None INDICATIONS FOR PROCEDURE: The patient is an 83-year-old lady with history of diminished visual acuity in her right eye secondary to the development of nuclear/cortical cataract. She appears undergone cataract surgery in the left eye and is doing well postoperatively. She now presents for cataract surgery in the right eye. See office notes for detailed information. PROCEDURE: The correct surgical eye was identified and marked as the right eye and the pupil was dilated in the preoperative area using mydriatics and cycloplegics. The dilated pupil size was 7.0 mm. The patient elected to proceed without oral sedation. The patient was brought to the operating room where cardiopulmonary monitoring was instituted and surgical time-out was performed, confirming the correct operative eye and IOL power. Topical anesthesia was administered and ophthalmic povidone-iodine 5% was instilled into the conjunctival fornices. The amanda-ocular area was prepped with Betadine 10% solution and draped in the usual sterile fashion for intraocular surgery, including an aperture drape. A Tegaderm transparent film dressing was cut in half and used to cover the lashes and lid margins. Care was taken to sequester the lashes and lid margins under the Tegaderm dressing. A lid speculum was placed between the lids of the operative eye and the Praveen LuxOR Revalia operating microscope was maneuvered into position. Inderjit scissors were then used to make a conjunctival buttonhole approximately 6mm posterior to the limbus in the inferonasal quadrant. Blunt dissection was carried out to expose bare sclera, and a blunt-tipped sub-tenon?s anesthesia cannula was introduced and passed posteriorly along the globe where non- preserved plain lidocaine was injected into posterior sub-Tenon?s space. A sideport knife was used to make a paracentesis port. Intraocular phenylephrine/lidocaine was injected into the anterior chamber. The anterior chamber was then filled with viscoelastic. A keratome knife was used to construct a two--plane clear corneal tunnel extending 2.0mm into clear cornea. A flap was raised on the anterior capsule and capsulorhexis forceps were used to complete a continuous curvilinear capsulorhexis of 5.0 mm. Balanced salt solution was then used to perform cortical cleaving hydrodissection and nuclear hydrodelineation until the lens could be freely rotated within the capsular bag. The lens nucleus was then disassembled and removed within the capsular bag and iris plane using phacoemulsification. Residual cortical material was removed using the I/A handpiece. The posterior capsule was carefully polished to remove as much residual lens epithelial cells as safely possible. The capsular bag was then inflated and the anterior chamber deepened with cohesive viscoelastic. The lens implant described above was inserted into the capsular bag using the Praveen Autonome Injector. A Kuglen hook was used to dial the IOL into position. Residual viscoelastic was then removed first from posterior to the IOL, then from the anterior chamber using the I/A handpiece. The lens implant was noted to center nicely within the capsular bag. The incisions were stromally hydrated, and the anterior chamber was reformed using BSS. Then 0.5cc of moxifloxacin 1.0mg/ml were injected into the capsular bag and anterior chamber. The incisions were checked with a Weck spear and found to be secure. Several drops of ophthalmic povidone-iodine 5% were then applied to the eye followed by two drops of combination steroid/NSAID/antibiotic solution. The drapes were removed and a clear plastic protective eye shield was placed over the eye. The patient was then returned to Same Day Surgery in stable condition.
--- NOTE | 2023-11-30 11:39 | W.ANESPOSTOP ---
Postoperative Evaluation Date, Time and Location Date Performed: 11/30/23 Time Performed: 11:39 Patient Location: Day Surgery Unit Vital Signs Most Recent Imported Vital Signs: Most Recent Vital Signs Temp Pulse Resp BP Pulse Ox 36.1 C L 65 18 146/73 H 100 11/30/23 11:30 11/30/23 11:30 11/30/23 11:30 11/30/23 11:30 11/30/23 11:30 Pain Score Most Recent Pain Score: Most Recent Pain Score Pain Level 0 11/30/23 11:30 Assessment Mental Status: Awake (Alert & Oriented to Patient Baseline) Airway and Respiratory Function: Patent airway with normal (patient baseline) respiratory exam Cardiovascular Function: Hemodynamically Stable Hydration Status: Adequately Hydrated Nausea & Vomiting: No Nausea or Vomiting Pain: Pt. Denies Any Pain Peripheral Nerve Block: Patient did not receive a nerve block
== END 2023-11-30 11:48 | disposition home or self-care (01) ==
LOC: SUR 09:42
PROVIDERS: PCP Nurse Practitioner Family; Visit Provider Ophthalmology
PROC: (CPT 66984; principal; 2023-11-30 12:30)
DX: H25.011 Cortical age-related cataract, right eye (principal); H25.11 Age-related nuclear cataract, right eye; I25.10 Atherosclerotic heart disease of native coronary artery without angina pectoris; J45.909 Unspecified asthma, uncomplicated; E11.9 Type 2 diabetes mellitus without complications; N18.30 Chronic kidney disease, stage 3 unspecified; Z98.42 Cataract extraction status, left eye
CPT/HCPCS: 66984; 00123; V2632; J2003

== ENCOUNTER 2024-04-11 00:55 | Outpatient (CLI) | payer MEDICARE, OTHER, SELFPAY ==
--- NOTE | 2024-04-11 06:30 | DI.MAMMO_ITS ---
Exam(s) MAMMO SCREENING EXAM: MAMMO SCREENING CLINICAL HISTORY: screening,z12.39 TECHNIQUE: Mammograms were interpreted according to the usual protocol including computer analysis w [employer] CAD system, tomosynthesis and C-view imaging. COMPARISON: 2014 through 2022 FINDINGS: The breasts are composed of scattered fibroglandular densities, Breast Density category B. No suspicious masses or suspicious microcalcifications are seen. No skin thickening or abnormal axillary lymph nodes are seen. There has been no significant change from prior exams. IMPRESSION: BI-RADS Category 1, Negative mammogram Yearly screening mammography is recommended. Breast Density - Category B, scattered fibroglandular densities. A negative radiographic report should not delay biopsy if a dominant or clinically suspicious mass is present. Up to ten percent of cancers are not identified on mammography. A negative report may reinforce clinical impression. Adenosis and dense breasts may obscure an underlying neoplasm. False positive reports average 6 to 10%. Patient will receive a letter notifying them of these results.
== END 2024-04-11 01:15 ==
LOC: DI 00:55
PROVIDERS: PCP Nurse Practitioner Family; Visit Provider Nurse Practitioner Family
DX: Z12.31 Encounter for screening mammogram for malignant neoplasm of breast (principal)
CPT/HCPCS: 77063; 77067

== ENCOUNTER → 2025-04-09 10:55 | Outpatient (BNVA) | payer MEDICARE, OTHER, SELFPAY | PROVIDERS: PCP Nurse Practitioner Family; Referring Provider Nurse Practitioner Family; Visit Provider Podiatrist | DX: L60.3 Nail dystrophy (principal); B35.1 Tinea unguium; E11.42 Type 2 diabetes mellitus with diabetic polyneuropathy; I87.2 Venous insufficiency (chronic) (peripheral); I73.89 Other specified peripheral vascular diseases; R09.89 Other specified symptoms and signs involving the circulatory and respiratory systems; R60.0 Localized edema; R20.8 Other disturbances of skin sensation; I83.93 Asymptomatic varicose veins of bilateral lower extremities; L65.9 Nonscarring hair loss, unspecified; R23.8 Other skin changes; R23.4 Changes in skin texture; L60.2 Onychogryphosis; L60.8 Other nail disorders | CPT/HCPCS: 99214; 11721 ==

== ENCOUNTER 2025-06-26 01:48 | Outpatient (CLI) | payer MEDICARE, OTHER, SELFPAY ==
[2025-06-26 11:24] LABS: Hemoglobin A1C 7.6 % (<5.7)
[2025-06-26 14:35] LABS: Anion Gap 9.4 mmol/L (3-11); BUN 22 mg/dL (9-23); CO2 29.6 mmol/L (20.0-31.0); Calcium 10.3 mg/dL (8.3-10.6); Chloride 103 mmol/L (98-107); Cholesterol 253 mg/dL (<200); Glucose 195 mg/dL (74-106); HDL Cholesterol 64 mg/dL (>40); Potassium 4.3 mmol/L (3.5-5.1); Sodium 142 mmol/L (136-145)
== END 2025-06-26 01:49 | disposition home or self-care (01) ==
LOC: LBO 01:48
PROVIDERS: PCP Nurse Practitioner Family; Referring Provider Nurse Practitioner Family; Visit Provider Nurse Practitioner Family
DX: E11.49 Type 2 diabetes mellitus with other diabetic neurological complication (principal); I10 Essential (primary) hypertension; I70.90 Unspecified atherosclerosis; E11.42 Type 2 diabetes mellitus with diabetic polyneuropathy
CPT/HCPCS: 36415; 80048; 80061; 83036